=== PATIENT | female | born 1960 | race Two or more races ===

== ENCOUNTER 2024-03-24 11:01 | Outpatient (RCR) | payer MEDICARE, BC, SELFPAY | END 2024-03-28 23:59 | disposition home or self-care (01) | LOC: SCTC 11:01 | PROVIDERS: PCP Family Medicine; Referring Provider Family Medicine; Visit Provider Nurse Practitioner Family | DX: C91.00 Acute lymphoblastic leukemia not having achieved remission (principal) | CPT/HCPCS: 99212; G0463 ==

== ENCOUNTER 2024-05-28 14:19 | Outpatient (RCR) | payer MEDICARE, BC, SELFPAY ==
--- NOTE | 2024-05-31 21:50 | CTCFLWUP_ITS ---
Patient: RC WILLIS : 1960 Page 2 of 3 FOLLOW UP NOTE DATE OF SERVICE: 05/28/2024 NAME: RC WILLIS ACCOUNT: [id number] : 1960 AGE: 64 INTERVAL HISTORY: Patient doing well. Have no new symptoms. Go to the bathroom go to the ONCOLOGY HISTORY: DIAGNOSIS: Decreased white blood cell count, unspecified [ICD10] D72.819 HISTORY OF PRESENT ILLNESS: Ms. Willis is here at [facility]. She is clinically doing well. Denies any complaints. Denies any cough, chest pain, abdominal pain or leg cramps. Denies any weight loss or loss of appetite. Denies any fevers or night sweats. Ambulating well without any help. Has good appetite and good energy levels. 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 02/07/2016: Flow cytometry of the peripheral blood was done due to leukopenia? 03/16/2016: Bone marrow biopsy and aspiration? 01/23/2016: WBC 2.7, ANC 0.8, hemoglobin 13.6, platelets 355,000. 03/16/2016: WBC 2.9, ANC 0.9, hemoglobin 14.0, platelets 366,000. 08/22/2016: WBC 2.7, ANC 0.8, hemoglobin 13.6, platelets 362,000. 11/19/2016: WBC 2.9, ANC 0.8, hemoglobin 14.3, platelets 350,000. 04/10/2018: WBC 2.5, ANC 0.6, hemoglobin 13.0, platelets 408,000. 07/17/2018: WBC 2.6, ANC 0.9, hemoglobin 13.9, platelets 359,000. 11/17/2018: WBC 2.6, ANC 0.6, hemoglobin 13.3, platelets 345,000. 03/02/2019: WBC 2.6, ANC 0.8, hemoglobin 13.9, platelets 381,000. 11/25/2019: WBC 2.4, ANC 0.6, hemoglobin 13.5, platelets 407,000. 03/16/2020: WBC 2.5, ANC 0.7, hemoglobin 14.2, platelets 341,000. 09/15/2020: WBC 2.3, ANC 0.6, hemoglobin 14.2, platelet count 316,000. 01/25/2021: WBC 2.2, ANC 0.6, hemoglobin 13.0, platelets 323,000. 05/02/2021: WBC 3.1, ANC 0.9, hemoglobin 14.5, platelets 361,000. 08/29/2021: WBC 2.7, ANC 0.6, hemoglobin 15.0, platelets 356,000. 01/08/2022: WBC 2.9, ANC 0.8, hemoglobin 14.1, platelets 350,000. 01/10/2023: WBC 2.4, ANC 0.7, hemoglobin 14.4, platelets 311,000. 07/11/2023: WBC 2.6, ANC 0.8, hemoglobin 14.7, MCV 94, platelets 320,000. 02/21/2024: WBC 2.1, ANC 0.3, hemoglobin 14.2, MCV 91, platelets 315,000 OTHER MEDICAL HISTORY/CONDITIONS: FAMILY HISTORY: SOCIAL HISTORY: PRE [employer] HISTORY: MEDICATIONS: 1. No medications reported by patient - Medications Last Reconciled by Soco Lopez MA on 05/28/2024 ALLERGIES: No Known Drug Allergies REVIEW OF SYSTEMS: A complete 14-point review of systems was performed and is negative except as noted in interval history. PHYSICAL EXAMINATION: VITAL SIGNS: Temperature?98.2, B/P?130/77, Oxygen?Saturation?94% Weight?111?lbs PAIN: 0 - No pain ECOG Performance Status: 0 - Asymptomatic and fully active GENERAL APPEARANCE: Appears well, in no apparent distress, appropriately interactive. HEENT: Normocephalic, no temporal wasting, normal conjunctiva, no scleral icterus, normal hearing, lips without lesions, neck normal range of motion. CARDIOVASCULAR: Not assessed. PULMONARY: Normal respiratory effort, no respiratory distress or use of accessory muscles, speaking in full sentences, no tachypnea. EXTREMITIES: No pedal edema or cyanosis. SKIN: Normal skin appearance. NEUROLOGIC: Alert and oriented x4. PSHYCHIATRIC: Appropriate affect, mood normal, behavior normal, intact thought and speech. LABORATORY DATA: I have personally reviewed and interpreted each of the patient?s relevant lab tests, abnormal findings are below: Date 02/21/24 ??WHITE?BLOOD?COUNT?(Thou/mm3) 2.1?L ??RED?BLOOD?COUNT?(Miln/mm3) 4.63 ??HEMOGLOBIN?(gm/dl) 14.2 ??HEMATOCRIT?(%) 42.0 ??PLATELET?COUNT?(Thou/mm3) 315 ??NEUTROPHILS?%,?AUTO?(%) 16?L ??LYMPH?%,?AUTO?(%) 59?H ??NEUTROPHILS,?AUTO?(Thou/mm3) 0.3?L ASSESSMENT/PLAN: T. cell, LGL leukemia with the neutropenia Discussed with Ms. Willis that her ANC is about 500 and has been chronically low Patient need bone marrow biopsy and need higher level care Presented to Dr. Veliz for follow-up RETURN TO CLINIC: BILLING AND COMPLIANCE: I reviewed external records from providers outside my specialty as summarized above. I spent a total of 50 minutes on this patient?s care on the day of their visit excluding time spent related to any billed procedures. This time includes time spent with the patient as well as time spent documenting in the medical record, reviewing patients records and tests, obtaining history, placing orders, communicating with other healthcare professionals, counseling the patient, family or caregiver, and/or care coordination for the diagnoses above. Electronically Signed by: Salomón Mccarty MD T: 9:48 PM CC: Fredrick?Luigi,? PCP: Fredrick Meyers Referring: Fredrick Meyers This document was completed utilizing speech recognition software. Grammatical errors, random word insertions, pronoun errors, and incomplete sentences are an occasional consequence of this system due to software limitations, ambient noise, and hardware issues. Any formal questions or concerns about the content, text or information contained within the body of this dictation should be directly addressed to the provider for clarification.
== END 2024-05-29 23:59 | disposition home or self-care (01) ==
LOC: SCTC 14:19
PROVIDERS: PCP Family Medicine; Referring Provider Family Medicine; Visit Provider Internal Medicine Hematology & Oncology
DX: C91.Z0 Other lymphoid leukemia not having achieved remission (principal)
CPT/HCPCS: 99212; G0463

== ENCOUNTER → 2024-09-09 | Outpatient (CLI) | payer MEDICARE, BC, SELFPAY ==
--- NOTE | 2024-09-09 11:30 | XR_ITS ---
Examination: CT chest with intravenous contrast CT abdomen with intravenous contrast CT pelvis with intravenous contrast 2-D coronal and sagittal reconstructions Time of exam: September 09, 2024 1330 hours INDICATIONS: Diagnosis leukemia, leukopenia beginning 2015 CTDI: vol (mGy) : 6.1 DLP: (mGycm): 409 Technique: Multiple axial images of the chest, abdomen and pelvis with intravenous contrast, 3.0 mm slice thickness. Images obtained post intravenous injection Isovue 370 60 cc. 2-D sagittal and coronal reconstructions. Low dose protocols were performed. One or more of the following dose reduction techniques were used; automated exposure control, adjustment of the mA and/or KV according to patient size, use of iterative reconstruction technique. Findings: No thoracic aortic aneurysm dilatation No pulmonary artery filling defects No paratracheal tracheobronchial or bronchopulmonary adenopathy No pneumonia or pulmonary edema or pleural disease No axillary lymphadenopathy Negative for hepatosplenomegaly No gallstones No pancreatic or adrenal mass No hydronephrosis No abdominal or pelvic lymphadenopathy Normal appendix No bowel obstruction No pelvic mass Urinary bladder intact Severe osteopenia IMPRESSION: No mediastinal adenopathy No pneumonia, pulmonary edema or pleural disease Negative for hepatosplenomegaly No abdominal or pelvic adenopathy
== END | disposition home or self-care (01) ==
LOC: CCTX 11:29
PROVIDERS: PCP Family Medicine; Referring Provider Internal Medicine Hematology; Visit Provider Internal Medicine Hematology
DX: C91.50 Adult T-cell lymphoma/leukemia (HTLV-1-associated) not having achieved remission (principal)
CPT/HCPCS: 71260; 74177; A4649; Q9967